=== PATIENT | male | born 1995 | race Caucasian/White ===

== ENCOUNTER 2020-11-25 01:18 | Emergency (ER) | payer OTHER | END 2020-11-25 01:35 | LOC: SED 01:18 | DX: Z02.83 Encounter for blood-alcohol and blood-drug test (principal) ==

== ENCOUNTER 2022-08-16 04:54 | Emergency (ER) | payer MEDICAID, OTHER ==
[~2022-08-16] VITALS: Ht 172.7 cm; Wt 106.6 kg
[2022-08-16 05:15] VITALS: BP_SYST 150
--- NOTE | 2022-08-16 05:57 | NUR ---
Patient to ER bed 3 to gown for evaluation. Side rails up. Report given to Roxi ANDERSON(reg).
--- NOTE | 2022-08-16 06:09 | NUR ---
Pt coming from home ambulatory with steady gait. Pt c/o abcess on nose. Pt has hx of having abcess in the past. Skin intact. Rates pain 3/10 non-radiating. NKA. VSS. No known medical conditions. Bed in lowest position.
--- NOTE | 2022-08-16 06:10 | NUR ---
ER at bedside examining patient.
[2022-08-16] MEDS ORDERED: SULFAMETHOXAZOLE/TRIMETHOPR DS 1 TABLET PO ONE (06:30)
[2022-08-16] MEDS ORDERED: cephALEXin 500 MG CAPSULE PO ONE (06:30)
[2022-08-16] MEDS ORDERED: CEPH-548 PO (06:41)
[2022-08-16] MEDS ORDERED: SULF1TAB48 PO (06:41)
--- NOTE | 2022-08-16 06:54 | NUR ---
Patient given written and verbal discharge instructions and verbalizes understanding. ER MD discussed with patient the results and treatment provided. Patient in stable condition. ID arm band removed. Patient educated on pain management and to follow up with PMD. Pain Scale 0/10. Opportunity for questions provided and answered. Medication side effect fact sheet provided.
[2022-08-16 06:55] VITALS: BP_SYST 125
== END 2022-08-16 06:54 | disposition home or self-care (01) ==
LOC: SED 04:54
DX: J34.0 Abscess, furuncle and carbuncle of nose (principal); J45.909 Unspecified asthma, uncomplicated; Z79.899 Other long term (current) drug therapy
CPT/HCPCS: 99283

== ENCOUNTER 2022-10-28 08:15 | Emergency (ER) | payer SELFPAY ==
[~2022-10-28 08:15] MED LIST: CEPH-548 PO; SULF1TAB48 PO
--- NOTE | 2022-10-28 08:33 | NUR ---
PT LEFT WITHOUT BEING SEEN OR TRIAGE.
== END 2022-10-28 08:33 | disposition left against medical advice (07) ==
LOC: SED 08:15
DX: J02.9 Acute pharyngitis, unspecified (principal); Z53.21 Procedure and treatment not carried out due to patient leaving prior to being seen by health care provider

== ENCOUNTER 2023-07-18 10:38 | Emergency (ER) | payer MEDICAID ==
[~2023-07-18] VITALS: Ht 172.7 cm; Wt 102.1 kg
[2023-07-18 10:38] VITALS: BP_SYST 136; PULSE 71; RESP 19; TEMP 98.8; O2SAT 99
[~2023-07-18 10:38] MED LIST changes: +TOBR3.5O25 OP
[2023-07-18] MEDS ORDERED: DOXY100C5 PO ×2 (11:12→11:28)
[2023-07-18 11:40] VITALS: BP_SYST 131; PULSE 74; RESP 19; TEMP 98.8; O2SAT 99
== END 2023-07-18 11:34 | disposition home or self-care (01) ==
LOC: SED 10:38
DX: L02.01 Cutaneous abscess of face (principal); H01.8 Other specified inflammations of eyelid; J45.909 Unspecified asthma, uncomplicated; Z79.899 Other long term (current) drug therapy
CPT/HCPCS: 99283